=== PATIENT | female | born 1970 | race Two or more races ===

== ENCOUNTER 2023-03-08 17:07 | Inpatient (IN) | payer OTHER ==
[~2023-03-08] VITALS: Ht 175.3 cm; Wt 129.3 kg
[2023-03-08] MEDS ORDERED: SYNTHROID150 MCG PO (18:08)
[2023-03-08] MEDS ORDERED: SYNTHROID125 MCG PO (18:08)
[2023-03-08] MEDS ORDERED: EZALLOR SPRINKLE5 MG PO (18:09)
--- NOTE | 2023-03-08 18:12 | NUR ---
PTE ALERTA Y ORIENTADA X3, MATT REFERIDO MEDICO POR PLAQUETAS BAJAS. SE OBSERVAN MORETONES ALREDEDOR DEL CUERPO (DRE, PIERNAS, BRAZOS, ETC). SE CASSANDRA SV Y SE RIANNA EN PASILLO.
[2023-03-11] MEDS ORDERED: SYNTHROID175 MCG (09:39)
== END 2023-03-14 19:46 | disposition home or self-care (01) | DRG 813 ==
LOC: ER 17:07 → MEDI 19:29
PROVIDERS: ADMIT Specialist; ATTEND Specialist
PROC: 30233R1 Transfusion of Nonautologous Platelets into Peripheral Vein, Percutaneous Approach (ICD-10-PCS; principal; 2023-03-09)
PROC: BW40ZZZ Ultrasonography of Abdomen (ICD-10-PCS; 2023-03-13)
DX: D69.3 Immune thrombocytopenic purpura (principal); R04.0 Epistaxis; K76.0 Fatty (change of) liver, not elsewhere classified; E03.9 Hypothyroidism, unspecified; E78.5 Hyperlipidemia, unspecified